=== PATIENT | male | born 1980 | race Caucasian/White ===

== ENCOUNTER 2017-05-26 11:03 | Emergency (ER) | payer SELFPAY ==
[~2017-05-26] VITALS: Ht 175.3 cm; Wt 52.5 kg
[~2017-05-26 11:03] MED LIST: NOHOMEMEDS
[2017-05-26 13:03] VITALS: BP 112/81
== END 2017-05-26 12:58 | disposition left against medical advice (07) ==
LOC: EME 11:03
DX: R11.2 Nausea with vomiting, unspecified (principal); R50.9 Fever, unspecified; Z53.21 Procedure and treatment not carried out due to patient leaving prior to being seen by health care provider

== ENCOUNTER 2017-05-27 18:02 | Inpatient (IN) | payer OTHER ==
[~2017-05-27] VITALS: Ht 175.3 cm; Wt 48.9 kg
[2017-05-27 18:57] LABS: HEMATOCRIT 45.7 % (38.0-50.0); HEMOGLOBIN 16.6 G/DL (12.5-16.6); MCHC 36.3 G/DL (30.0-36.0); MCV 85.3 FL (86-99); PLATELET COUNT 423 K/uL (156-360); RBC DIS.WIDTH-CV 12.3 % (11.8-14.6); RBC DIS.WIDTH-SD 38.1 % (39-53); RED BLOOD COUNT 5.36 M/uL (4.00-5.50); WHITE BLOOD COUNT 18.1 K/uL (4.1-10.2)
[2017-05-27 19:23] LABS: CHLORIDE 91 mEq/L (99-109); POTASSIUM 3.4 mEq/L (3.7-5.4); SODIUM 136 mEq/L (136-147)
[2017-05-27 19:25] LABS: GLUCOSE 113 mg/dL (70-99)
[2017-05-27 19:29] LABS: CREATININE 1.5 mg/dL (0.6-1.3); GFR ESTIMATE (CALCULATED) 56 mL/min/ (58.99-99999); UREA NITROGEN (BUN) 35 mg/dL (9-23)
[2017-05-27 19:33] LABS: TROP-I INTERPRETATION NEGATIVE; TROPONIN-I < 0.01 ng/mL (0.0-0.30)
[2017-05-27 22:42] LABS: INTER. NORMALIZED RATIO 1.5
[2017-05-27 22:45] LABS: PTT 52.8 SEC (25-37)
[2017-05-27 23:02] LABS: LIPASE 5 U/L (1.0-51.0)
[2017-05-28 00:02] LABS: LACTATE DEHYDROGENASE 296 IU/L (20-246)
[2017-05-28] MEDS ORDERED: ONDANSETRON ODT4 MG PO (00:14)
[2017-05-28] MEDS ORDERED: TYLENOL325 M2 PO (00:15)
[2017-05-28] MEDS ORDERED: PEPTO BISMOL240 ML PO (00:16)
[2017-05-28 00:22] LABS: APPEARANCE SL.HAZY ((CLEAR)); BILIRUBIN NEGATIVE; BLOOD NEGATIVE; COLOR YELLOW ((YELLOW)); GLUCOSE (STRIP) NEGATIVE; KETONES 20; LEUKOCYTES NEGATIVE; NITRITE NEGATIVE; PROTEIN (STRIP) 100; SPECIFIC GRAVITY 1.028 (1.000-1.030); UROBILINOGEN 0.2 MG/DL (0.2-1.0)
[2017-05-28 00:25] LABS: BACTERIA RARE /HPF; EPITHELIAL CELLS NONE SEEN /HPF; HYALINE CASTS 20-30 /LPF; MUCUS TRACE /LPF; RED BLOOD CELLS 0-5 /HPF (0-5); UCUL ADDED? YES
[2017-05-28 01:55] LABS: ALBUMIN 4.3 g/dL (3.2-4.8)
[2017-05-28 01:58] LABS: TOTAL PROTEIN 8.4 g/dL (6.4-8.3)
[2017-05-28 01:59] LABS: TOTAL BILIRUBIN 0.4 mg/dL (0.0-1.0)
[2017-05-28 02:00] LABS: SERUM ETHYL ALCOHOL < 10 mg/dL
[2017-05-28 02:01] LABS: ALKALINE PHOSPHATASE 126 IU/L (3-129)
[2017-05-28 02:03] LABS: AST (GOT) 32 IU/L (2-34); DIRECT BILIRUBIN 0.3 mg/dL (0.0-0.3); SALICYLATE 12.4 MG/DL (15-30)
[2017-05-28 02:04] LABS: ACETAMINOPHEN (TYLENOL) < 10 mcg/mL (10-30); ALT (GPT) 26 IU/L (3-49)
[2017-05-28 03:29] VITALS: BP 106/59
[2017-05-28 06:07] LABS: TROP-I INTERPRETATION NEGATIVE; TROPONIN-I < 0.01 ng/mL (0.0-0.30)
[2017-05-28 07:03] LABS: BENZODIAZEPINES, URINE SCREEN Negative (200 ng/mL)
[2017-05-28 08:25] VITALS: BP 117/65
[2017-05-28 11:01] LABS: HEPATITIS B SURFACE ANTIGEN Nonreactive
[2017-05-28 11:02] LABS: HEPATITIS C ANTIBODY Nonreactive
[2017-05-28 11:03] LABS: ANTI-HEPATITIS A VIRUS (IGM) Nonreactive
[2017-05-28 11:04] LABS: ANTI-HEPATITIS B CORE (IGM) Nonreactive; HIV-1/2 AB/AG COMBO Nonreactive
[2017-05-28 11:16] VITALS: BP 108/57
[2017-05-28 12:28] LABS: TROP-I INTERPRETATION NEGATIVE; TROPONIN-I < 0.01 ng/mL (0.0-0.30)
[2017-05-28 15:37] VITALS: BP 116/62
[2017-05-28 16:55] LABS: C DIFF TOXIN NEGATIVE (NEGATIVE)
[2017-05-28 19:00] VITALS: BP 106/69
[2017-05-29 00:10] VITALS: BP 108/62
[2017-05-29 04:15] VITALS: BP 103/60
[2017-05-29 05:56] LABS: BASOPHIL (%) 0.4 % (0-1); EOSINOPHIL COUNT 0.1 K/uL (0-0.3); HEMATOCRIT 32.3 % (38.0-50.0); IMMATURE GRANULOCYTE (%) 3.7 % (0.0-0.7); LYMPHOCYTE (%) 29.2 % (15-42); LYMPHOCYTE COUNT 2.6 K/uL (1.0-2.8); MCH 29.9 PG (29.0-34.0); MCHC 33.7 G/DL (30.0-36.0); MCV 88.7 FL (86-99); MONOCYTE (%) 16.8 % (3-12); MONOCYTE COUNT 1.5 K/uL (0-0.8); NEUTROPHIL (%) 48.9 % (45-76); NEUTROPHIL COUNT 4.4 K/uL (1.8-6.4); PLATELET COUNT 390 K/uL (156-360); RBC DIS.WIDTH-CV 12.4 % (11.8-14.6); RBC DIS.WIDTH-SD 40.7 % (39-53)
[2017-05-29 05:59] LABS: HEMOGLOBIN 10.9 G/DL (12.5-16.6); RED BLOOD COUNT 3.64 M/uL (4.00-5.50)
[2017-05-29 06:17] LABS: ALBUMIN 2.7 G/DL (3.2-4.8); ALKALINE PHOSPHATASE 65 IU/L (3-129); ALT (GPT) 15 IU/L (3-49); AST (GOT) 17 IU/L (2-34); CHLORIDE 101 MEQ/L (99-109); CREATININE 0.6 MG/DL (0.6-1.3); GFR ESTIMATE (CALCULATED) > 59 mL/min/ (58.99-99999); GLUCOSE 96 mg/dL (70-99); POTASSIUM 3.7 MEQ/L (3.7-5.4); SODIUM 136 MEQ/L (136-147); TOTAL BILIRUBIN 0.4 MG/DL (0.0-1.0); TOTAL PROTEIN 4.9 G/DL (6.4-8.3); UREA NITROGEN (BUN) 9 mg/dL (9-23)
[2017-05-29 06:26] LABS: ABS NEUTROPHIL COUNT 5.1; ANISOCYTOSIS 1+; ATYPICAL LYMPHOCYTE 1.7 %; BAND NEUTROPHILS 0.9 % (0-8.0); EOSINOPHIL ABS CT 0.1; EOSINOPHILS 0.9 % (0-5.0); LYMPHOCYTES 28.9 % (15.0-45.0); MONOCYTES 11.4 % (0-9.0); MYELOCYTES 0.9 %; PLAT.SUFFICIENCY ADEQUATE; SEG.NEUTROPHILS 55.3 % (46.0-76.0); SPHEROCYTES 1+
[2017-05-29 08:33] VITALS: BP 103/67
[2017-05-29 11:30] VITALS: BP 108/70
[2017-05-29] MEDS ORDERED: OSELTAMIVIR PHO30 MG PO (18:42)
[2017-05-29] MEDS ORDERED: BUPROPION HCL150 M2 PO (18:43)
[2017-05-29] MEDS ORDERED: NICOTINE PATCH1 EAC1 TD (18:43)
[2017-05-29] MEDS ORDERED: SPIRIVA RESPIMAT4 GM IH (18:45)
[2017-05-29] MEDS ORDERED: CEFDINIR300 MG PO (18:46)
[2017-05-29] MEDS ORDERED: PROAIR HFA8.5 GM IH (18:48)
== END 2017-05-29 19:44 | disposition home or self-care (01) | DRG 871 ==
LOC: EME 18:02 → 5WEST 05-28 01:09 → EDOF 05-28 01:09 → ENRESERV 05-28 01:14 → 5WEST 05-28 03:18
PROVIDERS: Emergency Medicine; Hospitalist; Internal Medicine; Internal Medicine Pulmonary Disease
DX: A41.9 Sepsis, unspecified organism (principal); J10.08 Influenza due to other identified influenza virus with other specified pneumonia; J18.0 Bronchopneumonia, unspecified organism; N17.9 Acute kidney failure, unspecified; J44.0 Chronic obstructive pulmonary disease with (acute) lower respiratory infection; J44.1 Chronic obstructive pulmonary disease with (acute) exacerbation; R64 Cachexia; E87.6 Hypokalemia; F12.10 Cannabis abuse, uncomplicated; F32.9 Major depressive disorder, single episode, unspecified; F17.210 Nicotine dependence, cigarettes, uncomplicated; Z68.1 Body mass index [BMI] 19.9 or less, adult
CPT/HCPCS: 71045; 71046; 71250; 74176; 80048; 80053; 80074; 80076; 80306 90; 81003; 83605; 83615; 83690; 84484; 85025; 85027; 85610; 85730; 87040; 87086; 87177; 87389; 87493; 87502; 87506; 87801; 93005; 94640; 99202; 99281; 99285; G0480; J0456; J0696; J1644; J1885; J2405; J2765; J3480; J7030; J7050; S0028